=== PATIENT | male | born 1950 | race Caucasian/White ===

== ENCOUNTER 2024-08-09 16:41 | Emergency (ER) | payer MEDICARE, OTHER ==
[2024-08-09] MEDS ORDERED: Sodium Chloride 0.9% 10 ML Syringe FLUSH PRN (17:00)
[2024-08-09 17:18] LABS: BASOPHILS PERCENT AUTO 0.6 % (0.0-1.0); EOSINOPHILS PERCENT AUTO 2.8 % (1.0-3.0); HEMATOCRIT 50.6 % (40.0-54.0); HEMOGLOBIN 17.5 g/dL (14.0-18.0); LYMPHOCYTES PERCENT AUTO 25.9 % (20.5-50.1); MEAN CORPUSCULAR HEMOGLOBIN 29.9 pg (27.0-34.0); MEAN CORPUSCULAR HGB CONC 34.6 g/dL (33.0-35.0); MEAN CORPUSCULAR VOLUME 86.5 fL (80-100); NEUTROPHILS PERCENT AUTO 57.7 % (42.2-75.2); PLATELET COUNT,PLT 140 10^3/uL (150-450); RED BLOOD CELL COUNT 5.85 10^6/uL (4.6-6.2); WHITE BLOOD CELL COUNT,WBC 5.1 10^3/uL (5.0-10.0)
[2024-08-09 17:38] LABS: A/G RATIO 1.3; ALANINE AMINOTRANSFERASE,ALT 30 U/L (16-63); ALBUMIN 4.3 g/dL (3.4-5.0); ALKALINE PHOSPHATASE 93 U/L (46-116); ANION GAP 10.4 mEq/L (7-13); ASPARTATE AMNIOTRANSFERASE,AST 15 U/L (15-37); BILIRUBIN TOTAL 0.7 mg/dL (0.2-1.0); BLOOD UREA NITROGEN,BUN 17 mg/dL (7-18); BUN/CREATININE RATIO 14.5 (No establ ref range); CALCIUM 9.5 mg/dL (8.5-10.1); CARBON DIOXIDE,CO2 31 mmol/L (21-32); CHLORIDE,CL 106 mmol/L (98-107); CREATININE 1.17 mg/dL (0.70-1.30); GLUCOSE RANDOM 104 mg/dL (70-99); MAGNESIUM 2.2 mg/dL (1.8-2.4); POTASSIUM,K 4.4 mmol/L (3.5-5.1); PROTEIN TOTAL,TP 7.6 g/dL (6.4-8.2); SODIUM,NA 143 mmol/L (136-145)
[2024-08-09 17:42] LABS: C-REACTIVE PROTEIN < 0.50 ng/dL (<=0.50); ESTIMATED GFR 65 mL/min (>=60)
[2024-08-09 17:44] LABS: PROTHROMBIN TIME 10.7 SEC (9.0-12.0)
[2024-08-09] MEDS: Iopamidol 755 Mg/ML 100 ML Bottle IVPUSH ONE (17:58)
[2024-08-09] MEDS: Ketorolac 30 MG/ML SDV IVPUSH ONE (18:20)
[2024-08-09] MEDS: Orphenadrine 60 MG/2 ML Inj IM ONE (18:41)
[2024-08-09] MEDS: predniSONE 20 MG Tab PO ONE (19:14)
[2024-08-09] MEDS: Take Home: Cyclobenzaprine 10 MG Tab, 4 Tab Pack PO ONE (19:17)
== END 2024-08-09 19:32 | disposition home or self-care (01) ==
LOC: DL.ED 16:41
DX: G51.0 Bell's palsy (principal); G44.209 Tension-type headache, unspecified, not intractable; E04.9 Nontoxic goiter, unspecified; J43.9 Emphysema, unspecified; M48.02 Spinal stenosis, cervical region; I10 Essential (primary) hypertension; F17.200 Nicotine dependence, unspecified, uncomplicated
CPT/HCPCS: 36415; 70450; 70496; 70498; 72125; 80053; 83605; 83735; 85025; 85610; 85730; 86140; 93005; 93010; 96372; 96374; 99284; A9270; J1885; J2360; J7512; Q9967